=== PATIENT | female | born 2000 | race Caucasian/White ===

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

== ENCOUNTER 2019-02-04 06:58 | Emergency (ER) | payer MEDICAID, OTHER ==
--- NOTE | 2019-02-04 09:32 | ER Document Report ---
HPI - HPI Time Seen by Provider: 02/04/19 09:12 Pain Level: 3 Notes: Patient is an otherwise healthy 18-year-old female presented to the emergency department with concern for mosquito bites as well as upper respiratory symptoms. Patient reports she was bitten by mosquitoes 2 days ago, states that she was seen at the [facility] and started on cephalexin for possible cellulitis to her buttocks from the mosquito bites. Patient reports since then she has developed runny nose, nasal congestion and sore throat. She denies any fevers. - CONSTITUTIONAL Constitutional: DENIES: Fever, Chills - EENT EENT: REPORTS: Sore Throat - REPRODUCTIVE Reproductive: DENIES: : Past Medical History - General Information source: Patient - Social History Smoking Status: Never Smoker Chew tobacco use (# tins/day): No Frequency of alcohol use: None Drug Abuse: None Family History: Reviewed & Not Pertinent Patient has suicidal ideation: No Patient has homicidal ideation: No Pulmonary Medical History: Reports: Hx Asthma Renal/ Medical History: Denies: Hx Peritoneal Dialysis - Immunizations Immunizations up to date: Yes Hx Diphtheria, Pertussis, Tetanus Vaccination: Yes - <5 years Vertical Provider Document - CONSTITUTIONAL Notes: PHYSICAL EXAMINATION: GENERAL: Well-appearing, well-nourished and in no acute distress. HEAD: Atraumatic, normocephalic. EYES: Pupils equal round extraocular movements intact, conjunctiva are normal. ENT: Nares with clear rhinorrhea, cobblestone pattern noted on the back of throat, no tonsillar swelling, no exudates, uvula midline. NECK: Normal range of motion, mild cervical lymphadenopathy bilaterally. LUNGS: No respiratory distress, lungs clear and equal bilaterally. Musculoskeletal: Normal range of motion NEUROLOGICAL: Normal speech, normal gait. PSYCH: Normal mood, normal affect. SKIN: Warm, Dry, normal turgor, scattered erythematous areas noted to patient's hands, legs and buttocks consistent with insect bites. There is induration to several of these but no fluctuance. - INFECTION CONTROL TRAVEL OUTSIDE OF THE [place] IN LAST 30 DAYS: No Course - Re-evaluation Re-evalutation: Patient appears well, nontoxic and vital signs are within normal limits. Patient will be started on antibiotics for possible cellulitis due to the insect bites. Her upper respiratory symptoms are consistent with a viral infection. No further treatment is indicated for that, [id number] remedies were discussed. Patient will be discharged home in stable condition. - Vital Signs Vital signs: Temp Pulse Resp BP Pulse Ox 98.2 F 90 18 111/61 99 02/04/19 07:06 02/04/19 07:06 02/04/19 07:06 02/04/19 07:06 02/04/19 07:06 Discharge - Discharge Clinical Impression: Cellulitis Qualifiers: Site of cellulitis: buttock Qualified Code(s): L03.317 - Cellulitis of buttock Upper respiratory infection Qualifiers: URI type: unspecified URI Qualified Code(s): J06.9 - Acute upper respiratory infection, unspecified Condition: Stable Disposition: HOME, SELF-CARE Additional Instructions: You can stop taking the cephalexin since she do not feel that it is helping, start taking the doxycycline. Take the prednisone as prescribed. Continue to take Benadryl every 6 hours. Do your best to not scratch at the area. You may also apply a thin layer of a triple antibiotic ointment to the area this may help with healing. Follow-up with your primary care provider. Prescriptions: Doxycycline Hyclate 100 mg PO BID #14 capsule Prednisone [Deltasone 20 mg Tablet] 3 tab PO DAILY 5 Days #15 tablet
[2019-02-04 09:46] VITALS: BP 110/66
== END 2019-02-04 09:47 | disposition home or self-care (01) ==
LOC: ER 06:58
DX: L03.317 Cellulitis of buttock (principal); S30.860A Insect bite (nonvenomous) of lower back and pelvis, initial encounter; W57.XXXA Bitten or stung by nonvenomous insect and other nonvenomous arthropods, initial encounter; J06.9 Acute upper respiratory infection, unspecified; R09.81 Nasal congestion; J02.9 Acute pharyngitis, unspecified; J45.909 Unspecified asthma, uncomplicated; J34.89 Other specified disorders of nose and nasal sinuses
CPT/HCPCS: 99282

== ENCOUNTER 2019-03-31 03:50 | Emergency (ER) | payer OTHER ==
[2019-03-31 03:58] VITALS: BP 117/71
== END 2019-03-31 04:46 | disposition home or self-care (01) ==
LOC: ER 03:50
DX: M54.6 Pain in thoracic spine (principal); G44.209 Tension-type headache, unspecified, not intractable; M54.2 Cervicalgia
CPT/HCPCS: 99283